=== PATIENT | female | born 1995 | race Caucasian/White ===

== ENCOUNTER 2021-03-19 15:13 | Observation (INO) | payer MEDICAID, OTHER ==
[~2021-03-19] VITALS: Ht 162.6 cm; Wt 65.8 kg
[2021-03-19] MEDS ORDERED: SODIUM CHLORIDE 0.9% 1,000 ML IV ONE (16:00)
== END 2021-03-19 17:30 | disposition home or self-care (01) ==
LOC: 8 EST LDRP 15:13
PROVIDERS: ADMIT Specialist; ATTEND Specialist
DX: O26.892 Other specified pregnancy related conditions, second trimester (principal); R42 Dizziness and giddiness; Z3A.25 25 weeks gestation of pregnancy
CPT/HCPCS: 59025; 96360; G0378; 99281